=== PATIENT | female | born 1980 | race American Indian/Alaskan Native ===

== ENCOUNTER 2016-09-24 07:51 | Emergency (ER) | payer SELFPAY ==
[2016-09-24 09:31] LABS: Basophils % (Auto) 1.1 % (0.0-1.8); Eosinophils % (Auto) 2.1 % (0.0-4.3); Mean Corpuscular HGB Conc 30 % (30-34); Platelet Count 342 K/mm3 (140-440); Red Blood Count 4.42 M/mm3 (3.65-5.03); Red Cell Distribution Width 18.6 % (13.2-15.2); White Blood Count 9.8 K/mm3 (4.5-11.0)
[2016-09-24 09:45] LABS: Anion Gap 17 mmol/L; Blood Urea Nitrogen 12 mg/dL (7-17); Calcium 8.8 mg/dL (8.4-10.2); Carbon Dioxide 25 mmol/L (22-30); Chloride 99.2 mmol/L (98-107); Glucose 115 mg/dL (65-100); Potassium 4.1 mmol/L (3.6-5.0); Sodium 137 mmol/L (137-145)
[2016-09-24 09:53] LABS: Hematocrit 28.9 % (30.3-42.9); Hemoglobin 8.6 gm/dl (10.1-14.3); Mean Corpuscular Hemoglobin 20 pg (28-32); Mean Corpuscular Volume 66 fl (79-97)
[2016-09-24 10:09] LABS: INR 1.06 (0.87-1.13)
[2016-09-24 10:10] LABS: Partial Thromboplastin Time 29.1 Sec. (24.2-36.6)
[2016-09-24] MEDS ORDERED: MORPHINE IM ONE (17:21)
[2016-09-24] MEDS ORDERED: VALIUM IM ONE (17:21)
[2016-09-24] MEDS ORDERED: LASIX PO ONE (17:29)
--- NOTE | 2016-09-24 17:29 | Emergency Department Report ---
HPI - General Chief Complaint: Extremity Problem,Nontraumatic Time Seen by Provider: 09/24/16 15:54 - HPI HPI: The patient is a 36-year-old female who presents for evaluation of lower leg pain. The patient reports 3 months of bilateral lower leg pain, 10/10 in severity, burning and sharp in quality, radiating proximally, exacerbated with ambulation, and associated with bilateral lower leg swelling. The patient denies fever, dyspnea, chest pain, paresthesias, motor deficit, trauma to the lower legs, abdominal pain or swelling. ED Past Medical Hx - Past Medical History Previous Medical History?: Yes Hx Seizures: Yes Hx Psychiatric Treatment: Yes (depression) Additional medical history: DVT - Surgical History Past Surgical History?: Yes Additional Surgical History: C section x3 - Social History Smoking Status: Never Smoker Substance Use Type: None - Medications Home Medications: Home Medications Medication Instructions Recorded Confirmed Last Taken Type Furosemide [Lasix] 20 mg PO QDAY #20 tablet 09/24/16 Unknown Rx Gabapentin [Neurontin] 300 mg PO BID #30 cap 09/24/16 Unknown Rx ED Review of Systems ROS: Stated complaint: SOB/LEG PAIN Other details as noted in HPI Constitutional: denies: fever ENT: denies: throat or neck pain Respiratory: denies: cough, shortness of breath Cardiovascular: denies: chest pain Endocrine: denies unexplained weight loss or gain Gastrointestinal: denies: abdominal pain, nausea Genitourinary: denies: dysuria Musculoskeletal: reports: leg pain and swelling Skin: denies: rash Neurological: denies: headache Hematological/Lymphatic: denies: easy bleeding or easy bruising Psych: denies sadness or hopelessness Physical Exam - Physical Exam Vital Signs: Vital Signs 09/24/16 09/24/16 08:49 15:34 Temperature 98.1 F Pulse Rate 73 74 Respiratory 16 16 Rate Blood Pressure 141/97 Blood Pressure 117/63 [Left] O2 Sat by Pulse 100 100 Oximetry Physical Exam: General: well-nourished, well-developed, no acute distress Head: Normocephalic, atraumatic Eyes: normal sclera ENT: Mucous membranes are pink and moist Neck: trachea midline, neck supple, No neck stiffness, no cervical adenopathy Respiratory: Breath sounds equal bilaterally, no wheezing, rales, or rhonchi Cardio: S1 and S2 present, no murmurs, rubs, gallops, capillary refill is brisk Abdomen: Normoactive bowel sounds, soft abdomen, no rigidity, no guarding or rebound tenderness Musc: 1+ pitting edema of bilateral lower legs, bilateral generalized tenderness to palpation present as well, distal sensation and motor function intact, distal pulses intact Skin: No rash Neuro: no facial drooping, normal speech Psych: Normal affect ED Course Vital Signs 09/24/16 09/24/16 08:49 15:34 Temperature 98.1 F Pulse Rate 73 74 Respiratory 16 16 Rate Blood Pressure 141/97 Blood Pressure 117/63 [Left] O2 Sat by Pulse 100 100 Oximetry ED Medical Decision Making - Lab Data Result diagrams: 09/24/16 09:16 09/24/16 09:16 - Medical Decision Making The patient was seen and examined by myself. The patient is placed on a duplicating machine mechanic and continuous pulse ox. On initial evaluation, the patient was found to be in no distress. Evaluation orders were placed. The patient is given a tablet of Lasix for treatment of fluid overload and an IM dose of Valium for her pain. Lab results are reassuring including normal BNP and negative Preg tests. Ultrasound of the lower extremities is negative for DVT. The patient was reevaluated and reported that their symptoms were markedly improved. The patient is stable for discharge with outpatient follow-up. The patient is given follow-up and return instructions. The patient expressed understanding and agreed with the plan. The patient is discharged in stable condition. Critical care attestation.: If time is entered above; I have spent that time in minutes in the direct care of this critically ill patient, excluding procedure time. ED Disposition Clinical Impression: Leg pain, bilateral, Leg swelling Acute low back pain Qualifiers: Back pain laterality: bilateral Sciatica presence: without sciatica Qualified Code(s): M54.5 - Low back pain Disposition: DISCHARGED TO HOME OR SELFCARE Is pt being admited?: No Does the pt Need Aspirin: No Condition: Stable Instructions: Acute Low Back Pain (ED), Peripheral Neuropathy (ED), Leg Edema ( ED), Lumbar Radiculopathy (ED) Prescriptions: Furosemide [Lasix] 20 mg PO QDAY #20 tablet Gabapentin [Neurontin] 300 mg PO BID #30 cap Referrals: TEJA HEMPHILL MD [Staff Physician] - 3-5 Days Time of Disposition: 17:22
[2016-09-24 19:03] VITALS: BP 112/70
== END 2016-09-24 19:03 | disposition home or self-care (01) ==
LOC: ED 07:51
DX: M79.661 Pain in right lower leg (principal); M79.662 Pain in left lower leg; M79.89 Other specified soft tissue disorders; M54.5 Low back pain; R56.9 Unspecified convulsions; I82.409 Acute embolism and thrombosis of unspecified deep veins of unspecified lower extremity
CPT/HCPCS: 36415; 80048; 83880; 84703; 85025; 85610; 85730; 93970; 96372; 99284; J2270; J3360

== ENCOUNTER 2017-08-11 12:33 | Emergency (ER) | payer SELFPAY | END 2017-08-11 13:40 | disposition left against medical advice (07) | LOC: ED 12:33 | DX: R05 Cough (principal); Z53.21 Procedure and treatment not carried out due to patient leaving prior to being seen by health care provider ==

== ENCOUNTER 2019-09-30 19:05 | Emergency (ER) | payer OTHER ==
[2019-09-30 20:16] VITALS: BP 113/86
[2019-09-30] MEDS ORDERED: HYDROcodone/ACETAMINOPHEN 10-325MG TAB PO ONE (20:18)
--- NOTE | 2019-09-30 20:20 | Event Note ---
ED Screening Note Date of service: 09/30/19 Time: 20:19 ED Screening Note: 39 y/o female comes in for right ankle pain s/p fall while on being on skates. This initial assessment/diagnostic orders/clinical plan/treatment(s) is/are subject to change based on patients health status, clinical progression and re- assessment by fellow clinical providers in the ED. Further treatment and workup at subsequent clinical providers discretion. Patient/guardian urged not to elope from the ED as their condition may be serious if not clinically assessed and managed. Initial orders include: x-ray
--- NOTE | 2019-09-30 21:29 | XRay Report ---
RIGHT ANKLE 4 VIEWS INDICATION / CLINICAL INFORMATION: fell and heard a crack on her right ankle COMPARISON: None available. FINDINGS: BONES / JOINT(S): There is a fracture of the distal third of the fibular shaft. There is widening of the ankle joint with slight lateral subluxation of the talus relative to the tibia. On the lateral vi ew there is a small fracture fragment which appears to arise from the posterior tibia.. There is soft tissue swelling in the right lower leg and ankle SOFT TISSUES: No significant abnormality. ADDITIONAL FINDINGS: None. Signer Name: Phong Baker MD Signed: 09/30/2019 9:25 PM Workstation Name: [id number]
--- NOTE | 2019-09-30 23:05 | Emergency Department Report ---
ED Lower Extremity HPI - General Chief Complaint: Extremity Injury, Lower Stated Complaint: RIGHT ANKLE PAIN Time Seen by Provider: 09/30/19 20:16 Source: patient Mode of arrival: Wheelchair Limitations: No Limitations - History of Present Illness Initial Comments: 39-year-old -[place] Citizen female patient complains of right ankle pain, swelling, and bruising after falling while rollerskating today. She rates her pain as a 10/10 in severity and admits to mild numbness in her right foot. MD Complaint: ankle injury -: Sudden - Related Data Previous Rx's Medication Instructions Recorded Last Taken Type Furosemide [Lasix] 20 mg PO QDAY #20 tablet 09/24/16 Unknown Rx Gabapentin 300 mg PO BID #30 cap 09/24/16 Unknown Rx Ibuprofen [Motrin 800 MG tab] 800 mg PO Q8HR PRN #20 tablet 05/21/17 Unknown Rx Meclizine [Antivert] 25 mg PO TID PRN #20 tablet 05/21/17 Unknown Rx traMADoL [Ultram] 50 mg PO Q6HR PRN #14 tablet 05/21/17 Unknown Rx Acetaminophen/Codeine [Tylenol 1 tab PO Q6H PRN #12 tab 09/30/19 Unknown Rx /Codeine # 3 tab] Ibuprofen [Motrin 800 MG tab] 800 mg PO Q8HR PRN #21 tablet 09/30/19 Unknown Rx Allergies Allergy/AdvReac Type Severity Reaction Status Date / Time Penicillins Allergy Hives Verified 05/21/17 12:35 ED Review of Systems ROS: Stated complaint: RIGHT ANKLE PAIN Other details as noted in HPI Constitutional: denies: fever, malaise, weakness Musculoskeletal: joint swelling, arthralgia Skin: denies: rash, lesions ED Past Medical Hx - Past Medical History Previous Medical History?: Yes Hx Hypertension: Yes Hx Seizures: Yes Hx Psychiatric Treatment: Yes (depression) Additional medical history: DVT - Surgical History Past Surgical History?: Yes Additional Surgical History: C section x3 - Social History Smoking Status: Never Smoker Substance Use Type: None - Medications Home Medications: Home Medications Medication Instructions Recorded Confirmed Last Taken Type Furosemide [Lasix] 20 mg PO QDAY #20 tablet 09/24/16 Unknown Rx Gabapentin 300 mg PO BID #30 cap 09/24/16 Unknown Rx Ibuprofen [Motrin 800 MG tab] 800 mg PO Q8HR PRN #20 tablet 05/21/17 Unknown Rx Meclizine [Antivert] 25 mg PO TID PRN #20 tablet 05/21/17 Unknown Rx traMADoL [Ultram] 50 mg PO Q6HR PRN #14 tablet 05/21/17 Unknown Rx Acetaminophen/Codeine [Tylenol 1 tab PO Q6H PRN #12 tab 09/30/19 Unknown Rx /Codeine # 3 tab] Ibuprofen [Motrin 800 MG tab] 800 mg PO Q8HR PRN #21 tablet 09/30/19 Unknown Rx ED Physical Exam - General Limitations: No Limitations General appearance: alert, in no apparent distress - Head Head exam: Present: atraumatic, normocephalic - Eye Eye exam: Present: normal appearance - ENT ENT exam: Present: mucous membranes moist - Respiratory Respiratory exam: Absent: respiratory distress - Cardiovascular Cardiovascular Exam: Present: regular rate - Expanded Lower Extremity Exam Right Lower Leg exam: Present: tenderness, swelling, ecchymosis Ankle exam: Present: tenderness, swelling, ecchymosis. Absent: full ROM, abrasion, laceration, erythema Neuro vascular tendon exam: Present: sensory deficit (Decreased sensation to the right foot; normal pedal pulses noted in the right foot) - Neurological Exam Neurological exam: Present: alert, oriented X3. Absent: normal gait - Psychiatric Psychiatric exam: Present: normal affect, normal mood - Skin Skin exam: Present: warm, dry, intact, normal color. Absent: rash ED Course Vital Signs 09/30/19 19:31 Temperature 98.4 F Pulse Rate 90 Respiratory 18 Rate Blood Pressure 113/86 O2 Sat by Pulse 97 Oximetry ED Lower Extremity MDM - Radiology Data Radiology results: report reviewed RIGHT ANKLE 4 VIEWS INDICATION / CLINICAL INFORMATION: fell and heard a crack on her right ankle COMPARISON: None available. FINDINGS: BONES / JOINT(S): There is a fracture of the distal third of the fibular shaft. There is widening of the ankle joint with slight lateral subluxation of the talus relative to the tibia. On the lateral view there is a small fracture fragment which appears to arise from the posterior tibia.. There is soft tissue swelling in the right lower leg and ankle SOFT TISSUES: No significant abnormality. ADDITIONAL FINDINGS: None. - Medical Decision Making Patient here with right ankle/leg injury after rollerskating today. X-ray shows fracture of the distal third of the fibular shaft and a small fragmental fracture from the posterior tibia. Patient has some decreased sensation of the right foot, likely due to swelling. However she does have normal perfusion and pedal pulses noted. Patient placed in a Glen splint and instructed to follow-up with Dr. Nava for further evaluation and treatment. Patient also instructed to remain nonweightbearing. Signs and symptoms of compression syndrome and strict return precautions were discussed in great detail with patient who verbalizes understanding. Critical care attestation.: If time is entered above; I have spent that time in minutes in the direct care of this critically ill patient, excluding procedure time. ED Disposition Clinical Impression: Fracture of right lower leg Qualifiers: Encounter type: initial encounter Fracture type: closed Qualified Code(s): S82.91XA - Unspecified fracture of right lower leg, initial encounter for closed fracture Disposition: TO HOME OR SELFCARE Is pt being admited?: No Condition: Stable Instructions: Leg Fracture (ED), Ankle Fracture (ED), Splint Care (ED) Prescriptions: Ibuprofen [Motrin 800 MG tab] 800 mg PO Q8HR PRN #21 tablet PRN Reason: pain Acetaminophen/Codeine [Tylenol /Codeine # 3 tab] 1 tab PO Q6H PRN #12 tab PRN Reason: Pain , Severe (7-10) Referrals: CODI NAVA MD [Staff Physician] - 24 Hours
[2019-09-30] MEDS ORDERED: oxyCODONE /ACETAMINOPHEN 5-325MG TAB PO ONE (23:10)
[2019-09-30] MEDS ORDERED: IBUPROFEN 800 MG TAB PO ONE (23:10)
== END 2019-09-30 23:48 | disposition home or self-care (01) ==
LOC: ED 19:05
DX: S82.91XA Unspecified fracture of right lower leg, initial encounter for closed fracture (principal); I10 Essential (primary) hypertension; F31.9 Bipolar disorder, unspecified; Z79.899 Other long term (current) drug therapy; Z86.69 Personal history of other diseases of the nervous system and sense organs; Z88.0 Allergy status to penicillin; W19.XXXA Unspecified fall, initial encounter; Y93.51 Activity, roller skating (inline) and skateboarding; Y92.89 Other specified places as the place of occurrence of the external cause; Y99.8 Other external cause status; Z98.890 Other specified postprocedural states
CPT/HCPCS: 99283

== ENCOUNTER 2019-10-08 09:52 | Day surgery (SDC) | payer OTHER ==
[2019-10-08] MEDS ORDERED: VANCOMYCIN 1,000 MG/20 ML IV ONE (10:52)
--- NOTE | 2019-10-08 10:52 | Anesthesia Consultation ---
Anesthesia Consult and Med Hx Date of service: 10/08/19 - Airway Anesthetic Teeth Evaluation: Good ROM Head & Neck: Adequate Mental/Hyoid Distance: Adequate Mallampati Class: Class II Intubation Access Assessment: Good - Pulmonary Exam CTA: Yes - Cardiac Exam Cardiac Exam: No Murmur - Pre-Operative Health Status ASA Pre-Surgery Classification: ASA2 Proposed Anesthetic Plan: General Nerve Block: popletial nerve block - Pulmonary Hx Smoking: No Hx Sleep Apnea: No (GLENN PRE SCREEN LOW RISK) - Cardiovascular System Hx Hypertension: Yes (OFF MEDS X 3.5 YRS) - Central Nervous System Hx Seizures: Yes (LAST SEIZURE 6 MONTHS AGO-ON [facility]) Hx Back Pain: Yes - Hematic Hx Anemia: Yes - Other Systems Hx Cancer: No
--- NOTE | 2019-10-08 10:53 | Anesthesia Day of Surgery ---
Anesthesia Day of Surgery - Day of Surgery Patient Examined: Yes Patient H&P Reviewed: Yes Patient is NPO: Yes
[2019-10-08] MEDS ORDERED: CELECOXIB 200 MG CAP PO NR (11:00)
[2019-10-08] MEDS ORDERED: MIDAZOLAM 2 MG/2 ML INJ IV NR (11:00)
[2019-10-08] MEDS ORDERED: GABAPENTIN 300 MG CAP PO NR (11:00)
[2019-10-08] MEDS ORDERED: dexAMETHasone 4 MG/ML VIAL IV NR (11:00)
[2019-10-08] MEDS ORDERED: VANCOMYCIN 2,000 MG in SODIUM CHLORIDE 0.9% 500 ML 500 ML IV ONE (11:00)
[2019-10-08] MEDS ORDERED: FAMOTIDINE 20 MG TAB PO NR (11:00)
[2019-10-08 11:39] LABS: Hematocrit 36.8 % (30.3-42.9); Mean Corpuscular HGB Conc 32 % (30-34); Mean Corpuscular Volume 81 fl (79-97); Platelet Count 307 K/mm3 (140-440); Red Blood Count 4.57 M/mm3 (3.65-5.03); Red Cell Distribution Width 14.1 % (13.2-15.2)
[2019-10-08] MEDS: LACTATED RINGERS 1,000 ML IV SCH ×2 (11:50→16:56)
[2019-10-08] MEDS ORDERED: LIDOCAINE MPF (2%) 20 MG/1 ML VIAL 5 ML ONE (15:04)
[2019-10-08] MEDS ORDERED: propofoL 200 MG/20 ML VIAL IV ONE (15:04)
[2019-10-08] MEDS ORDERED: fentaNYL 100 MCG/2 ML INJ ONE (15:04)
--- NOTE | 2019-10-08 16:50 | Procedure Note ---
Date of procedure: 10/08/19 Pre-op diagnosis: [place] fracture right ankle with disruption of syndesmosis Post-op diagnosis: same Procedure: Open reduction internal fixation right fibula with tight rope fixation syndesmosis Procedure The patient was brought to the OR placing our table as a supine position following induction of ratio and anesthesia patient's [left] lower extremity was prepped and draped in the usual sterile manner a timeout procedure was done to identify the patient and the correct operative site The leg was exsanguinated followed by inflation of the pneumatic tourniquet to 300 mm Hg. a lateral incision was made along the middle third fibula distally and down sharply through skin and subcutaneous down to periosteum the fracture site was identified following manipulation of the fracture fragments a bone clamp was used to stabilize. A 10-hole one third semitubular plate was was applied to the fibular shaft under C-arm visualization the leg was stabilize with screws of various lengths including cortical and cancellus screws AP and lateral views were obtained on the table showed good reduction of the fracture and placement of the hardware next the tight rope device was placed in the distal fibula into the tibia under C-arm visualization the device was locked into place with the ankle in maximum dorsiflexion. The wound was copiously irrigated with saline solution and was closed in a standard routine fashion for subcutaneous dressings were applied as well as a well-padded posterior mold patient tolerated the procedure complications Anesthesia: MAC, regional Surgeon: CODI DENNIS Social Work Supervisor: JF MILTON Estimated blood loss: minimal Pathology: none Condition: stable Disposition: PACU
--- NOTE | 2019-10-08 17:05 | XRay Report ---
INTRAOPERATIVE FLUOROSCOPY: RIGHT ANKLE 2 FLUOROSCOPIC IMAGES INDICATION / CLINICAL INFORMATION: RIGHT ANKLE FX. TECHNIQUE: Intraoperative spot images were obtained during the procedure. COMPARISON: Right ankle x-ray 09/30/2019 FINDINGS: Distal fibular compression plate and screws traverses the distal fibular fracture in expected positio n Fluoroscopy Time: 0.1 minutes. Fluoroscopy Images: 2. Signer Name: Julius Bass MD Signed: 10/08/2019 5:00 PM Workstation Name: [id number]
--- NOTE | 2019-10-08 17:05 | Post Anesthesia Evaluation ---
- Post Anesthesia Evaluation Patient Participated: Yes Airway Patent: Yes Stable Respiratory Function: Yes Nausea/Vomiting: No Temp > 96.8F: Yes Pain Manageable: Yes Adequeate Hydration: Yes Anesthesia Complications: No
[2019-10-08] MEDS ORDERED: ONDANSETRON 4 MG/2 ML INJ IV PRN (17:15)
[2019-10-08] MEDS ORDERED: MEPERIDINE 25 MG/1 ML INJ ONE (17:19)
[2019-10-08] MEDS ORDERED: MEPERIDINE 25 MG/1 ML INJ IV PRN (17:19)
[2019-10-08] MEDS: HYDROmorphone 1 MG/1 ML INJ IV PRN ×4 (17:33→18:25)
[2019-10-08] MEDS ORDERED: oxyCODONE /ACETAMINOPHEN 5-325MG TAB PO PRN (17:40)
[2019-10-08 18:46] VITALS: BP 128/85
== END 2019-10-08 19:35 | disposition home or self-care (01) ==
LOC: OR 09:52
PROVIDERS: ATTEND Orthopaedic Surgery
DX: S82.91XA Unspecified fracture of right lower leg, initial encounter for closed fracture (principal); I10 Essential (primary) hypertension; D64.9 Anemia, unspecified; F32.9 Major depressive disorder, single episode, unspecified; Z98.890 Other specified postprocedural states; Z88.0 Allergy status to penicillin; Z79.899 Other long term (current) drug therapy; Z82.49 Family history of ischemic heart disease and other diseases of the circulatory system; Z83.3 Family history of diabetes mellitus; X58.XXXA Exposure to other specified factors, initial encounter; Y93.89 Activity, other specified; Y92.89 Other specified places as the place of occurrence of the external cause; Y99.8 Other external cause status
CPT/HCPCS: 27784; 36415; 73600; 81025; 85027; C1713; J1100; J1170; J2175; J2250; J2405; J2704; J3010; J3370; J7040; J7120